=== PATIENT | female | born 1960 | race Two or more races ===

== ENCOUNTER 2017-11-29 18:51 | Emergency (ER) | payer MEDICAID, OTHER ==
[~2017-11-29] VITALS: Ht 162.6 cm; Wt 77.1 kg
[~2017-11-29 18:51] MED LIST: AMLO10TA2
[2017-11-29 19:10] VITALS: BP 112/73
[2017-11-29] MEDS ORDERED: HYDROcodone-ACET 10/325MG TAB PO ONE (22:00)
== END 2017-11-29 22:36 | disposition home or self-care (01) ==
LOC: ER 18:51
DX: S82.831A Other fracture of upper and lower end of right fibula, initial encounter for closed fracture (principal); K21.9 Gastro-esophageal reflux disease without esophagitis; I10 Essential (primary) hypertension; Z98.51 Tubal ligation status; X58.XXXA Exposure to other specified factors, initial encounter; Y93.01 Activity, walking, marching and hiking; Y92.89 Other specified places as the place of occurrence of the external cause; Y99.8 Other external cause status
CPT/HCPCS: 29515; 73610; 73630